=== PATIENT | female | born 1960 | race Caucasian/White ===

== ENCOUNTER 2017-06-21 14:41 | Emergency (ER) | payer SELFPAY ==
[~2017-06-21] VITALS: Ht 152.4 cm; Wt 59.0 kg
[2017-06-21 14:42] VITALS: BP 179/82; PULSE 78; RESP 16; TEMP 98.8; O2SAT 100
[2017-06-21] MEDS ORDERED: ACETAMINOPHEN/HYDROcodone 325 MG/5 MG TAB PO ONE (17:30)
--- NOTE | 2017-06-21 17:35 | PD ---
HPI Chief Complaint: Lump, Cyst, Hernia Time Seen by Provider: 17:09 Travel History International Travel<30 days: No Contact w/Intl Traveler<30days: No Traveled to known affect area: No History of Present Illness HPI 57-year-old female presents to emergency department complaining of the lesion to the right labia for 2 days. States that she believes it is an ingrown hair. States she has started shaving the genital region recently and has never had 1 of these lesions before. States that lesion is painful but denies discharge. Patient denies fevers or chills. Denies history of IV drug use. In addition , patient is concerned about a left arm pain that she has with lifting her movements for about 1 month. Patient denies trauma. Denies numbness or tingling. Denies weakness. States that she woke up with this pain and believes that she "slept on it wrong". PFSH Past Medical History Tubal Ligation: Yes Past Surgical History Section: Yes Hysterectomy: Yes Other Surgery: Yes (BREAST REDUCTION) Social History Alcohol Use: No Tobacco Use: No Allergies-Medications (Allergen,Severity, Reaction): Coded Allergies: acetaminophen (Verified Allergy, Severe, 06/21/17) hydrocodone (Verified Allergy, Severe, 06/21/17) morphine (Verified Allergy, Severe, HIVES, 06/21/17) No Known Drug Intolerances (Verified Allergy, Unknown, 06/21/17) Reported Meds & Prescriptions Reported Meds & Active Scripts Active Bactrim DS (Sulfamethoxazole-Trimethoprim) 800-160 Mg Tab 1 Tab PO BID Review of Systems Except as stated in HPI: all other systems reviewed are Neg Physical Exam Narrative GENERAL: Well-developed well-nourished in mild distress SKIN: Focused skin assessment warm/dry. Right vaginal labia-1.5 cm x 1 cm round area with central puncta, fluctuance at the center approx 5mm. No discharge. Mild erythema to the abscess but no lymphangiopathic spread HEAD: Atraumatic. Normocephalic. EYES: Pupils equal and round. No scleral icterus. No injection or drainage. ENT: No nasal bleeding or discharge. Mucous membranes pink and moist. NECK: Trachea midline. No JVD. CARDIOVASCULAR: Regular rate and rhythm. No murmur appreciated. RESPIRATORY: No accessory muscle use. Clear to auscultation. Breath sounds equal bilaterally. GASTROINTESTINAL: Abdomen soft, non-tender, nondistended. Hepatic and splenic margins not palpable. MUSCULOSKELETAL: No obvious deformities. No clubbing. No cyanosis. No edema. Left upper extremity-positive Ahmadi, positive empty can test. Mild TTP to deltoid and tricep area. No tenderness over bony prominences. No rashes or ecchymosis present NEUROLOGICAL: Awake and alert. No obvious cranial nerve deficits. Motor grossly within normal limits. Normal speech. PSYCHIATRIC: Appropriate mood and affect; insight and judgment normal. Data Data Last Documented VS Orders Orders Acetamin-Hydrocod 325-5 Mg ([place] 5-325 (06/21/17 17:30) Ketorolac Inj (Toradol Inj) (06/21/17 18:00) Ed Discharge Order (06/21/17 18:49) [facility] Medical Decision Making Medical Screen Exam Complete: Yes Emergency Medical Condition: Yes Differential Diagnosis Left shoulder tendinitis, rotator cuff injury, abscess, cellulitis Narrative Course 57-year-old female presents to emergency department complaining of the lesion to the right labia for 2 days. States that she believes it is an ingrown hair. States she has started shaving the genital region recently and has never had 1 of these lesions before. States that lesion is painful but denies discharge. Patient denies fevers or chills. Denies history of IV drug use. In addition , patient is concerned about a left arm pain that she has with lifting her movements for about 1 month. Patient denies trauma. Denies numbness or tingling. Denies weakness. States that she woke up with this pain and believes that she "slept on it wrong". Vital signs stable. Physical exam findings consistent with an abscess to the right labia and tendinitis to the left shoulder Incision and drainage performed to the right labia. Patient was unable to tolerate the entire procedure. Patient will be discharged with Bactrim. Advised to return in 1-2 days for wound check and packing removal. Advised that she should use heat for her shoulder and perform range of motion exercises. Patient should get a primary care physician for her care. Advised to return for worsening or persistent symptoms. Advised to monitor for signs of infection. Procedures Procedure Narrative INCISION AND DRAINAGE OF ABSCESS: The area was prepped and was sterilely draped. A subcutaneous wheal of 1 % Xylocaine with a total number 2 mL was used to anesthetize the area properly. A number 11 scalpel was used to make a 4mm incision across the area of the abscess. The abscess was drained, complex loculations were broken down, and irrigated with normal saline. Quarter inch iodoform packing was placed in the wound. Sterile dressing applied. Patient advised to have packing removed in two days. Diagnosis Primary Impression: Tendonitis Additional Impression: Abscess Referrals: [facility] Additional Instructions: Keep area clean and dry for 24 hours. Change dressings daily but avoid removing the gauze until you return for wound check in 1-2 days. If he developed increased redness, swelling, or pain return to the emergency department. Scripts Sulfamethoxazole-Trimethoprim (Bactrim DS) 800-160 Mg Tab 1 TAB PO BID for Infection, #14 TAB 0 Refills Prov: Brionna Aguilar 06/21/17 Disposition: 01 DISCHARGE HOME Condition: Stable Brionna Aguilar Jun 21, 2017 17:35
[2017-06-21] MEDS ORDERED: KETOROLAC TROMETHAMINE 60 MG/2 ML (IM) VIAL IM ONE (18:00)
[2017-06-21] MEDS ORDERED: BACT800T5 PO (18:45)
== END 2017-06-21 18:53 | disposition home or self-care (01) ==
LOC: NEPA 14:41
DX: M70.812 Other soft tissue disorders related to use, overuse and pressure, left shoulder (principal); N76.4 Abscess of vulva; Y93.84 Activity, sleeping; Z88.5 Allergy status to narcotic agent
CPT/HCPCS: 10061; 96372; 99283; J1885

== ENCOUNTER 2017-06-27 14:47 | Emergency (ER) | payer SELFPAY ==
[~2017-06-27 14:47] MED LIST: BACT800T5 PO
[2017-06-27 14:54] VITALS: BP 171/79; PULSE 62; RESP 12; TEMP 98.4; O2SAT 100
--- NOTE | 2017-06-27 15:04 | PD ---
HPI Chief Complaint: Injury Time Seen by Provider: 15:00 Travel History International Travel<30 days: No Contact w/Intl Traveler<30days: No Traveled to known affect area: No History of Present Illness HPI 57-year-old right-hand dominant female presents for evaluation of left proximal arm and shoulder pain. Symptoms started 2 months ago. The pain is an aching pain which is reproduced primarily with overhead lifting activities or with flexion of the left arm. Pain was unrelieved with [id number] ibuprofen. She does not recall any injury, strenuous activity or heavy lifting. Denies any numbness or tingling. Denies neck pain, chest pain, dyspnea. She has no other complaints at this time. History Social History Alcohol Use: No Tobacco Use: No Allergies-Medications (Allergen,Severity, Reaction): Coded Allergies: acetaminophen (Verified Allergy, Severe, 06/21/17) hydrocodone (Verified Allergy, Severe, 06/21/17) morphine (Verified Allergy, Severe, HIVES, 06/21/17) No Known Drug Intolerances (Verified Allergy, Unknown, 06/21/17) Reported Meds & Prescriptions Reported Meds & Active Scripts Active Bactrim DS (Sulfamethoxazole-Trimethoprim) 800-160 Mg Tab 1 Tab PO BID Review of Systems General / Constitutional: No: Fever, Chills Cardiovascular: No: Chest Pain or Discomfort Respiratory: No: Shortness of Breath Musculoskeletal: Positive: Pain, No: Limited ROM Skin: Positive Other (denies open wounds) Physical Exam Narrative GENERAL: Well-developed well-nourished female in no acute distress SKIN: Warm and dry. No erythema, no bruising, no soft tissue swelling HEAD: Atraumatic. Normocephalic. EYES: Pupils equal and round. No scleral icterus. No injection or drainage. ENT: No nasal bleeding or discharge. Mucous membranes pink and moist. NECK: Trachea midline. No JVD. CARDIOVASCULAR: Regular rate and rhythm. No murmur appreciated. RESPIRATORY: No accessory muscle use. Clear to auscultation. Breath sounds equal bilaterally. MUSCULOSKELETAL: No obvious deformities. There is no reproducible tenderness to palpation to the neck, left shoulder arm. There is no upper extremity edema. The patient mentions full range of motion of the upper extremities. She has 5 out of 5 muscle strength on flexion and extension, shoulder abduction and adduction. She does have pain with left arm flexion and left shoulder abduction against resistance. NEUROLOGICAL: Awake and alert. No obvious cranial nerve deficits. Motor grossly within normal limits. Normal speech. Data Data Last Documented VS Vital Signs Date Time Temp Pulse Resp B/P (MAP) Pulse Ox O2 Delivery O2 Flow Rate FiO2 06/27/17 14:54 98.4 62 12 171/79 (109) 100 MDM Medical Screen Exam Complete: Yes Emergency Medical Condition: No Narrative Course 57-year-old female with a 2 month duration of left arm pain. Pain is primarily reproduced with left arm flexion and abduction against resistance. She has no bony tenderness to palpation suggest bony abnormality. She has no evidence of DVT, arterial occlusion, infectious process and in fact her symptoms are most consistent with tendinitis versus muscle strain. Ideally this patient would follow up with a primary care physician for a nonacute issues such as this. A medical screening exam was performed: At the time of evaluation the presenting medical condition was determined not to be of an emergent nature. The patient was given the option of receiving additional care, but declined. Patient was given options for additional community resources from which to obtain care. The Patient Has Been advised to seek medical attention for their presenting complaint. The patient has been advised to return to the ER at any time if an emergent condition develops. Primary Impression: Encounter for medical screening examination Ren Saenz Jun 27, 2017 15:04
== END 2017-06-27 15:10 | disposition left against medical advice (07) ==
LOC: NEPK 14:47
DX: Z13.9 Encounter for screening, unspecified (principal)
CPT/HCPCS: 99281